=== PATIENT | male | born 1970 | race Two or more races ===

== ENCOUNTER 2017-04-27 08:23 | Emergency (ER) | payer BC ==
[~2017-04-27] VITALS: Ht 177.8 cm; Wt 72.6 kg
--- NOTE | 2017-04-27 08:25 | NUR ---
AAOX3, C/O DIFFUSE ABDOMINAL PAIN RADIATING TO BACK,NAUSEA AND VOMITING SINCE THIS AM. RESP IS EVEN AND UNLABORED WITH NAD NOTED. SKIN IS WARM AND DRY. AWAITING MD FOR EVAL.
[2017-04-27] MEDS ORDERED: HYDROMORPHONE 1 MG/1 ML DISP.SYRIN ONE (08:53)
[2017-04-27] MEDS ORDERED: ONDANSETRON HCL/PF 4 MG/2 ML VIAL ONE (08:53)
[2017-04-27] MEDS ORDERED: ONDANSETRON HCL/PF 4 MG/2 ML VIAL IVP ONE (09:00)
[2017-04-27] MEDS ORDERED: HYDROMORPHONE INJ 2 MG/ML DISP.SYRIN IV ONE (09:00)
[2017-04-27] MEDS ORDERED: IV NS 0.9% 1,000 ML BAG IV ONE (09:00)
[2017-04-27 09:06] LABS: BASOPHILS % (AUTO) 0.1 % (0.0-2.0); EOSINOPHILS % (AUTO) 0.1 % (0.0-6.0); HEMATOCRIT 45 % (39-51); LYMPHOCYTES # (AUTO) 1.9 /CMM (0.8-4.8); LYMPHOCYTES % (AUTO) 9.8 % (20.0-44.0); MEAN CORPUSCULAR HEMOGLOBIN 30 PG (26.0-33.0); MEAN CORPUSCULAR HGB CONC 33 g/dl (31.0-36.0); MEAN CORPUSCULAR VOLUME 92 fL (80-96); MONOCYTES # (AUTO) 0.8 /CMM (0.1-1.30); NEUTROPHILS # (AUTO) 16.5 /CMM (1.8-8.9); PLATELET COUNT (AUTO) 288 /CMM (150-450); RDW COEFFICIENT OF VARIATION 13.9 (11.5-15.0); RED BLOOD CELL COUNT(AUTO) 4.95 MIL/uL (4.5-6.0); WHITE BLOOD COUNT (AUTO) 19.2 K/uL (4.3-11.0)
[2017-04-27 09:17] LABS: CALCIUM, SERUM 9.2 mg/dL (8.5-10.1); POTASSIUM 3.7 mmol/L (3.5-5.1)
[2017-04-27 09:23] LABS: ALBUMIN 4.5 g/dL (3.4-5.0); BILIRUBIN,DIRECT 0.1 mg/dL (0.0-0.2); BILIRUBIN,TOTAL 0.5 mg/dL (0.2-1.0); TOTAL PROTEIN, SERUM 7.9 g/dL (6.4-8.2)
[2017-04-27] MEDS ORDERED: KETOROLAC TROMETHAMINE INJ 30 MG/ML VIAL IV ONE (10:00)
[2017-04-27] MEDS ORDERED: TAMSULOSIN 0.4 MG CAP.SR.24H PO ONE (10:00)
[2017-04-27] MEDS ORDERED: TAMSULOSIN 0.4 MG CAP.SR.24H ONE (10:01)
[2017-04-27] MEDS ORDERED: KETOROLAC TROMETHAMINE INJ 30 MG/ML VIAL ONE (10:01)
[2017-04-27 11:55] VITALS: BP 132/77
--- NOTE | 2017-04-27 11:55 | NUR ---
Patient discharged to home in stable condition. Written and verbal after care instructions given. Patient verbalizes understanding of instruction.IV removed. Catheter intact and site benign. Pressure and 4x4 applied to site. No bleeding noted.
== END 2017-04-27 11:56 | disposition home or self-care (01) ==
LOC: ER 08:24
DX: N13.2 Hydronephrosis with renal and ureteral calculous obstruction (principal); D72.829 Elevated white blood cell count, unspecified; N20.1 Calculus of ureter; N28.1 Cyst of kidney, acquired
CPT/HCPCS: 36415; 74176; 76770; 80048; 80076; 83690; 85025; 96361; 96374; 96375; 99285; A4606; J1170; J1885; J2405; J7030; Z7610; 71250-TC